=== PATIENT | female | born 1980 | race Caucasian/White ===

== ENCOUNTER 2020-04-09 15:51 | Outpatient (CLI) | payer OTHER, SELFPAY ==
--- NOTE | ~2020-04-09 | MM_ITS ---
EXAMINATION: MM scrn hodan implant BI w shreyas HISTORY: Screening mammogram TECHNIQUE: Craniocaudal and mediolateral oblique 3-D tomosynthesis images with implant displacement a nd synthetic 2-D images were generated. Craniocaudal and mediolateral oblique views of the breasts wi thout implant displacement were obtained using full field digital mammography. CAD analysis was submi tted and interpreted. COMPARISON: No prior mammogram is available for comparison at this institution. BREAST PARENCHYMAL COMPOSITION: The breasts are heterogeneously dense, which may obscure small masses . FINDINGS: The right breast implant appears collapsed. There is focal asymmetry inferiorly in the righ t breast adjacent to the implant on the MLO view. No mammographic evidence for malignancy in the left breast. IMPRESSION: 1. Focal right breast asymmetry lower aspect of the right breast on MLO view. 2. Additional mammographic views and possible breast ultrasound are recommended. BI-RADS Category 0: Incomplete: Needs additional imaging evaluation. Reviewed, dictated and finalized at location A. HER OF THE DEAF IMPRESSION: 1. Focal right breast asymmetry lower aspect of the right breast on MLO view. 2. Additional mammographic views and possible breast ultrasound are recommended . BI-RADS Category 0: Incomplete: Needs additional imaging evaluation.
== END 2020-04-09 15:52 | disposition home or self-care (01) ==
LOC: ANHIMG 15:56
PROVIDERS: PCP Surgery Plastic and Reconstructive Surgery; Visit Provider Surgery Plastic and Reconstructive Surgery
DX: Z12.31 Encounter for screening mammogram for malignant neoplasm of breast (principal); R92.8 Other abnormal and inconclusive findings on diagnostic imaging of breast
CPT/HCPCS: 77063; 77067

== ENCOUNTER 2020-05-12 13:48 | Outpatient (CLI) | payer OTHER, SELFPAY ==
--- NOTE | ~2020-05-12 | MMUS_ITS ---
EXAMINATION: MM diagnostic mammo unilat RT, US breast RT complete HISTORY: Follow-up right breast asymmetry. TECHNIQUE: Additional 3-D tomosynthesis images of the right breast were performed and synthetic 2-D i mages were generated. CAD analysis was submitted and interpreted. High resolution right breast ultras ound was performed. COMPARISON: 04/09/2020 BREAST PARENCHYMAL COMPOSITION: Breast composed of scattered areas of fibroglandular density. FINDINGS: MAMMOGRAPHIC FINDINGS: Focal asymmetry inferiorly medially in the right breast is less dense with spot compression views, mo st likely sternalis muscle. There is a ruptured breast implant which is collapsed. There are no suspi cious masses, calcifications or architectural distortion to suggest malignancy. ULTRASOUND: Complete right breast ultrasound: Normal heterogeneous echotexture without focal solid or cystic mass . IMPRESSION: 1. No evidence for malignancy in the right breast. 2. Routine yearly screening mammogram and regular clinical breast examination are recommended. BI-RADS Category 2: Benign finding(s). Reviewed, dictated and finalized at location A. OR SUPPORT ENGINEER IMPRESSION: 1. No evidence for malignancy in the right breast. 2. Routine yearly screening mammogram and regular clinical breast examination a re recommended. BI-RADS Category 2: Benign finding(s).
== END 2020-05-12 13:49 | disposition home or self-care (01) ==
PROVIDERS: PCP Surgery Plastic and Reconstructive Surgery; Visit Provider Surgery Plastic and Reconstructive Surgery
DX: R92.8 Other abnormal and inconclusive findings on diagnostic imaging of breast (principal)
CPT/HCPCS: 76641; 77065

== ENCOUNTER → 2020-05-31 01:17 | Outpatient (CLI) | payer OTHER, SELFPAY ==
[2020-05-31 19:12] LABS: SARS-CoV-2 RNA PCR Negative
== END ==
PROVIDERS: Visit Provider Surgery Plastic and Reconstructive Surgery
DX: Z01.812 Encounter for preprocedural laboratory examination (principal); Z20.822 Contact with and (suspected) exposure to COVID-19
CPT/HCPCS: C9803; U0003; U0005

== ENCOUNTER 2020-06-03 00:04 | Day surgery (SDC) | payer OTHER, SELFPAY ==
[2020-05-23 12:36] VITALS: BMI 34.5
[2020-06-03] VITALS (9 sets, daily range): BP systolic 118–187; BP diastolic 75–119; PULSE 97–118; RESP 14–18; TEMP 30.7–36.3; O2SAT 94–99
[2020-06-03] MEDS: LACTATED RINGERS 1,000 ML 30 ML IV CONT (11:45)
--- NOTE | 2020-06-03 13:12 | WPDHPUPDATE1 ---
History and Physical Update Update Date/Time: 06/03/20 13:12 History and Physical has been reviewed, including an updated exam of the patient. There are NO changes in the patient's condition. Risks, benefits, and alternatives have been discussed and questions answered. Patient agrees to proceed with procedure.
--- NOTE | 2020-06-03 13:26 | WPDANESEPPF ---
Anes - Initial Pre Proc Eval Procedure: Operation Date: 06/03/20 13:30 Proposed Procedures p Bilateral Breast Implant Exchange With Capsulectomy - Juni Blackmon MD Date/Time: 06/03/20 13:26 Surgeon: Juni Blackmon MD Pre Op Diagnosis: breast implant rupture Patient Data Age: 39 Gender: F Height: 5 ft 3 in Weight: 87.2 kg Last Vital Signs Temp 30.7 C L 06/03/20 11:27 Pulse 97 06/03/20 11:27 Resp 18 06/03/20 11:27 BP 154/112 H 06/03/20 12:09 Pulse Ox 98 06/03/20 11:27 Allergies Allergy/AdvReac Type Severity Reaction Status Date / Time No Known Allergies Allergy Verified 06/03/20 11:56 Home Medications Medication Instructions Recorded Confirmed Type quetiapine 100 mg tablet 100 mg PO HS tablet 02/20/20 06/03/20 History sertraline 100 mg tablet 200 mg PO DAILY tablet 02/20/20 06/03/20 History docusate sodium 100 mg capsule 100 mg PO DAILY #14 cap 05/19/20 06/03/20 Rx hydrocodone 5 mg-acetaminophen 325 1 tablet PO Q6H PRN #15 tablet 05/19/20 06/03/20 Rx mg tablet multivitamin 2 tablet PO DAILY 05/23/20 06/03/20 History Patient hx anesthesia problems: none Family hx anesthesia problems: none PMFSH Past Medical History Medical History (Updated 06/03/20 @ 13:27 by Gagandeep Woods MD) Anxiety Depression Surgical History Surgical History (Updated 06/03/20 @ 13:27 by Gagandeep Woods MD) History of appendectomy History of breast augmentation Family History Family History Mother Family history of diabetes mellitus in first degree relative Depression Bipolar disorder Anxiety Grandparent Diabetes mellitus Social History Social History Smoking status: Never smoker Alcohol intake: current Drinks per week: 2 Substance use: never Substance use type: does not use Living arrangements: with family Spiritual care concerns: No Anes - Eval Final PreProcedure Day of Procedure 06/03/20 13:26 Patient weight: obese Heart: regular rate and rhythm Lungs: clear to auscultation Airway: Mallampati scale class II Neurological: alert and oriented Last oral intake: >/= 8 hours ASA classification: II Emergent: no Anesthetic plan: proceed Anesthesia type and monitoring: general LMA and standard monitoring Informed Consent: The patient's anesthetic plan and its attendant risks and benefits were discussed with the patient/family/POA. Questions were solicited and answers provided to the satisfaction of the patient/family/POA.
--- NOTE | 2020-06-03 13:37 | P.OP_ITS ---
Procedure Note - Detailed Date of procedure: 06/03/20 Pre-op diagnosis: breast implant rupture Post-op diagnosis: same Procedure performed: Bilateral breast implant exchange Description of procedure: Preoperatively the risks, benefits, alternatives were discussed in extensive detail. Want her to be very realistic risks involved as well as expectations. We discussed her textured implants. She would like to send the capsule. She understands given nature of her ear capsules I may not be able to send the entire capsule or removed the entire capsule. She would like to send the capsule. She understands there will be additional charge to her directly for this above and beyond the hernández she has paid. This was an open- ended conversation making sure answered all of her questions to her satisfaction today. She would like proceed as above. Consent obtained. She was taken to the operating room placed supine on the operating room table. Anesthesia was provided by anesthesiology prepped and draped in a standard sterile fashion. Surgical time-out was taken. 1% lidocaine and 0.25% Marcaine with epinephrine was used anesthetize as a field block. Fifteen blade was used to excise previous scar. Dissection was continued down to the capsule was identified. Elevated above the capsule removing as much as I was able to safely. I then removed the implants. On the right implant there was approximatly 30-40cc of intracapsular yellow/green fluid that was sent to pathology. The capsules were also sent to pathology. I irrigated with 3 L of saline on TUR tubing. Verified strict hemostasis. I then irrigated with triple antibiotic Betadine containing solution. Throughout the entire procedure she did have Tegaderm nipple Ngo in place. I washed my glove. On the back table a removed all the air from the implant. Introduced into the pocket. Using a fill kit filled the implant appropriate volumes as described below. This was closed using 2-0 Vicryl followed by 3-0 Monocryl in a running subcuticular 4-0 Monocryl. Finally tissue glue. Surgical bra placed. [place], taken to the PACU without difficulty. All instrument sponge counts were correct at the end of the case. Anesthesia: GLMA Surgeon: Juni Blackmon MD Estimated blood loss (mL): 10 Drains: No Packing: No Pathology: yes (Bilateral breast implant capsules) Complications: No immediate complications Condition: stable Disposition: PACU Findings: Right breast had yellow / green fluid intracapsular sent to pathology Previous implants were textured subglandular as suspected. New implants: Bilateral Natrelle Saline Breast Implants 700cc filled to 740cc. Right: REF [id number] SN [id number] Left: REF [id number] SN [id number]
[2020-06-03] MEDS: ceFAZolin 2 GM/D5W 50 ML 2 GM/50 ML BAG IVPB (13:51)
[2020-06-03] MEDS: LIDO 1%/EPINEPHRINE 1:100,000 50 ML VIAL 40 ML INFILTRATE (14:18)
[2020-06-03] MEDS: fentaNYL CITRATE INJ (*CRX) 100 MCG/2 ML VIAL 25 MCG IV PUSH ×5 (15:46→16:11)
[2020-06-03] MEDS: oxyCODONE HCL (*CRX) 5 MG TAB IR PO (16:57)
== END 2020-06-03 17:22 | disposition home or self-care (01) ==
PROVIDERS: Visit Provider Surgery Plastic and Reconstructive Surgery
PROC: (CPT 19342; principal; 2020-06-03 13:30)
DX: T85.41XA Breakdown (mechanical) of breast prosthesis and implant, initial encounter (principal); Y83.8 Other surgical procedures as the cause of abnormal reaction of the patient, or of later complication, without mention of misadventure at the time of the procedure; F41.8 Other specified anxiety disorders; Z79.899 Other long term (current) drug therapy; E66.9 Obesity, unspecified; Z68.34 Body mass index [BMI] 34.0-34.9, adult
CPT/HCPCS: 19370; 19325; 88104; 88108; 88304; 88305; A9270; J0131; J0690; J1100; J1580; J2250; J2405; J2704; J3010; J7030; J7120

== ENCOUNTER 2022-02-21 10:02 | Observation (INO) | payer OTHER, SELFPAY ==
[2022-02-21] VITALS (7 sets, daily range): BP systolic 146–172; BP diastolic 93–120; PULSE 78–88; RESP 16–20; TEMP 36.4–36.6; O2SAT 97–100; BMI 34.7
--- NOTE | ~2022-02-21 | CT_ITS ---
EXAMINATION: CT brain wo con DATE: 02/21/2022 13:24 INDICATION: Right-sided tingling and paresthesias. Neck pain. TECHNIQUE: Computed tomography (CT) of the head was performed without intravenous contrast. The mA wa s adjusted according to patient size. Iterative reconstruction technique was employed. The dose-lengt h product was 529.67 mGy-cm. COMPARISON: None FINDINGS: There is no intracranial hemorrhage, acute infarction, or abnormal intracranial mass lesion . There is an old infarct in left superior cerebellum. The ventricles are normal in size. The orbits are normal. The paranasal sinuses are clear. The mastoid air cells are normal. There is cerumen in le ft external auditory canal. IMPRESSION: 1. 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 Reviewed, dictated and finalized at location A. IST WATER PURIFICATION
--- NOTE | ~2022-02-21 | CT_ITS ---
EXAMINATION: CT cervical spine wo con DATE: 02/21/2022 13:24 INDICATION: Neck pain. Right-sided paresthesias. TECHNIQUE: Computed tomography (CT) of the cervical spine was performed without intravenous contrast. Automated exposure control and iterative reconstruction technique were employed. The dose-length pro duct was 387.32 mGy-cm. COMPARISON: Cervical spine radiographs 11/04/2007 FINDINGS: There is 4 degrees levocurvature of cervical spine. There is kyphosis of cervical spine. Ve rtebral body heights and intervertebral disc heights are normal. The following disc levels are specif ically discussed: C2-C3: There is no uncovertebral joint osteoarthritis. There is mild right facet joint osteoarthritis . There is no neural foraminal stenosis. There is no central canal stenosis. C3-C4: There is no uncovertebral joint osteoarthritis. There is mild right and moderate left facet violet int osteoarthritis. There is no neural foraminal stenosis. There is no central canal stenosis. C4-C5: There is no uncovertebral joint osteoarthritis. There is mild bilateral facet joint osteoarthr itis. There is no neural foraminal stenosis. There is mild central canal stenosis. C5-C6: There is no uncovertebral joint osteoarthritis. There is mild bilateral facet joint osteoarthr itis. There is no neural foraminal stenosis. There is no central canal stenosis. C6-C7: There is no uncovertebral joint osteoarthritis. There is no facet joint osteoarthritis. There is no neural foraminal stenosis. There is no central canal stenosis. C7-T1: There is no uncovertebral joint osteoarthritis. There is moderate bilateral facet joint osteoa rthritis. There is no neural foraminal stenosis. There is no central canal stenosis. IMPRESSION: 1. Mild cervical spondylosis. Reviewed, dictated and finalized at location A. FIXER
--- NOTE | ~2022-02-21 | CT_ITS ---
EXAMINATION: CTA brain carotid DATE: 02/21/2022 14:30 INDICATION: right sided numbness TECHNIQUE: Computed tomographic angiography (CTA) of the head was performed without and with 100 mL O mnipaque-350 intravenous contrast. CTA of the neck was performed with intravenous contrast. Automated exposure control and iterative reconstruction technique were employed. The dose-length product was 1 035.64 mGy-cm. Maximum intensity projection and volume rendered 3D-reconstructions were created by mary howard technologist on a separate workstation. COMPARISON: CT brain 02/11/2022. FINDINGS: CTA HEAD: No large vessel occlusion, aneurysm, high flow vascular malformation, nidus or extravasation. Communi cating arteries are patent. CTA NECK: Aortic arch and proximal great vessels: Normal arch. Right common carotid, carotid bifurcation, and internal carotid artery: No plaque.There is 0% stenosi s of the proximal right internal carotid artery relative to normal distal artery lumen diameter (NASC ET criteria). Left common carotid, carotid bifurcation, and internal carotid artery: No plaque.There is 0% stenosis of the proximal left internal carotid artery relative to normal distal artery lumen diameter (NASCET criteria). Vertebral arteries: No significant plaque or stenosis. Left vertebral artery is dominant. Other findings: Enhancing midline nasopharyngeal mass between the longus colli muscles with internal gas collection. Upper anterior cervical chain lymphadenopathy IMPRESSION: 1. No large vessel occlusion. No significant stenosis in the carotid or vertebral arteries. 2. 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 Correlate clinically, and consider ENT referral. 3. Anterior cervical lymphadenopathy. Reviewed, dictated and finalized at location K. NE LATHE OPERATOR IMPRESSION: 1. No large vessel occlusion. No significant stenosis in the carotid or vertebr al arteries. 2. 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 Correlate cli nically, and consider ENT referral. 3. Anterior cervical lymphadenopathy.
--- NOTE | ~2022-02-21 | MR_ITS ---
EXAMINATION: MR cervical spine wo con DATE: 02/22/2022 10:11 INDICATION: Right neck and shoulder pain and paresthesias. TECHNIQUE: Magnetic resonance imaging (MRI) of the cervical spine was performed without intravenous c ontrast. COMPARISON: CT cervical spine 02/21/2022 FINDINGS: There is hypolordosis of cervical spine. Vertebral body heights and intervertebral disc hei ghts are normal. The spinal cord signal intensity is normal. The following disc levels are specifical ly discussed: C2-C3: The disc does not extend beyond the endplate margin. There is no uncovertebral joint osteoarth ritis. There is mild right facet joint osteoarthritis. There is no neural foraminal stenosis. There i s no central canal stenosis. C3-C4: There is a central protrusion. There is no uncovertebral joint osteoarthritis. There is mild r ight and moderate left facet joint osteoarthritis. There is no neural foraminal stenosis. There is mi ld central canal stenosis. C4-C5: The disc is bulging. There is no uncovertebral joint osteoarthritis. There is mild bilateral f acet joint osteoarthritis. There is no neural foraminal stenosis. There is mild central canal stenosi s. C5-C6: The disc does not extend beyond the endplate margin. There is no uncovertebral joint osteoarth ritis. There is mild bilateral facet joint osteoarthritis. There is no neural foraminal stenosis. The re is no central canal stenosis. C6-C7: The disc does not extend beyond the endplate margin. There is no uncovertebral joint osteoarth ritis. There is mild left facet joint osteoarthritis. There is no neural foraminal stenosis. There is no central canal stenosis. C7-T1: The disc does not extend beyond the endplate margin. There is no uncovertebral joint osteoarth ritis. There is moderate bilateral facet joint osteoarthritis. There is no neural foraminal stenosis. There is no central canal stenosis. IMPRESSION: 1. Mild cervical spondylosis. Reviewed, dictated and finalized at location A. D WELFARE ASSISTANT
--- NOTE | ~2022-02-21 | MR_ITS ---
EXAMINATION: MR thoracic spine wo con DATE: 02/23/2022 12:20 INDICATION: Right-sided numbness and tingling. TECHNIQUE: Magnetic resonance imaging (MRI) of the thoracic spine was performed without intravenous c ontrast. Sagittal localizer T1-weighted FSE of the cervical spine was obtained. Thoracic spine sequen vinay included sagittal T2-weighted FSE, sagittal T1-weighted FSE, sagittal T2-weighted FS FSE, and axi al T2-weighted FSE. COMPARISON: None FINDINGS: There is 7 degrees dextrocurvature of thoracic spine. Vertebral body heights are normal. In tervertebral disc heights are normal. There is multilevel facet joint osteoarthritis, severe on the r ight at T3-T4 and on the left at T2-T3 and T3-T4. On the right, there is mild neural foraminal stenos is at T3-T4, T4-T5, and T5-T6. On the left, there is mild neural foraminal stenosis at T2-T3, T3-T4, and T6-T7. The discs do not extend beyond the endplate margins. No central canal stenosis. The spinal cord signal intensity is normal. The conus medullaris is at L1-L2. IMPRESSION: 1. Mild thoracic spondylosis. Reviewed, dictated and finalized at location A. E OR SHRED ROLL OPERATOR
--- NOTE | ~2022-02-21 | MR_ITS ---
EXAMINATION: MR brain/brain stem wo/w con DATE: 02/22/2022 10:11 INDICATION: Right-sided numbness. TECHNIQUE: Magnetic resonance imaging (MRI) of the brain and brainstem was performed without and with 18 mL MultiHance intravenous contrast. COMPARISON: Head CT 02/21/2022 FINDINGS: There is no intracranial hemorrhage, acute infarction, or abnormal intracranial mass lesion . There is an old infarct in superior left cerebellum. There are scattered areas of nonspecific incre ased T2-weighted signal intensity in the cerebral white matter, which is within normal limits for the patient's age. The ventricles are normal in size. The orbits are normal. The paranasal sinuses are clear. The mastoid air cells are normal. IMPRESSION: 1. 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 Reviewed, dictated and finalized at location A. CREW FOREMAN
--- NOTE | 2022-02-21 12:31 | ED.EXTPRO ---
HPI - Extremity Problem General Chief complaint: Extremity Problem,Nontraumatic Stated complaint: TINGLING TO R SIDE FOR 2 DAYS Time Seen by Provider: 02/21/22 11:59 History of Present Illness HPI Narrative: Patient is a 41-year-old female with a history of depression presenting with intermittent tingling. Patient states that for the last 2 days she has had intermittent tingling on the right side of her body. States it involves her arm and leg but not her face. No speech changes or focal weakness. States that it feels strange to walk when it happens because her leg feels tingly. States the episodes last for about a minute. Also complaining of right-sided neck pain that radiates into her shoulder. No fevers or chills, chest pain, shortness of breath, cough, abdominal pain, nausea or vomiting, diarrhea, dysuria, leg swelling. Denies recent trauma. Related Data Home Medications Medication Instructions Recorded Confirmed sertraline 100 mg tablet 200 mg PO DAILY 02/20/20 02/21/22 norgestimate 0.25 mg-ethinyl 1 tablet PO QPM 02/21/22 02/21/22 estradiol 35 mcg tablet (Sprintec (28)) Allergies Allergy/AdvReac Type Severity Reaction Status Date / Time No Known Allergies Allergy Verified 07/23/20 15:19 Review of Systems Review of Systems: All systems reviewed & are unremarkable except as noted in HPI and below PMFSH Past Medical History Medical History (Updated 02/21/22 @ 16:47 by Isabella Lewis PA-C) Anxiety Bipolar disorder Depression Surgical History Surgical History History of appendectomy History of breast augmentation Family History Family History Mother Family history of diabetes mellitus in first degree relative Depression Bipolar disorder Anxiety Grandparent Diabetes mellitus Social History Social History (Updated 02/21/22 @ 16:42 by Isabella Lewis PA-C) Social History: Surrogate medical decision maker: Bárbara ( mother) or Paige ( sibling) Alberto. Code status: Full code. Smoking status: Never smoker Alcohol intake: former Drinks per week: 2 Substance use: never Substance use type: does not use Lack of Transportation: No Lack of Food: Never True Current Housing: I Have Housing Concerned About Future Housing: No Difficulty Paying Gas/Electric Bills: No Difficulty Paying for Meds: No Currently Unemployed: YES Education: High School Diploma/GED Difficulty w/ Childcare or Family Care: No Additional occupation/education comments: Lives with mother in [place]. Additional gender identity comments: Not currently employed. Spiritual care concerns: No Exam Narrative: GENERAL: Well-appearing, well-nourished, and in no acute distress. HEAD: Normocephalic, atraumatic. EYES: PERRLA and EOMI. ENT: Nares clear, no rhinorrhea or epistaxis. Mucous membranes moist. NECK: Supple. CHEST: Clear to auscultation. No respiratory distress. HEART: Regular rate and rhythm. No murmur heard. Normal peripheral pulses. ABDOMEN: Soft, nontender, nondistended, normal active bowel sounds. EXTREMITIES: Normal range of motion. No edema. SKIN: Warm, dry, no rash. NEURO: No focal deficits. Alert and oriented x3. PSYCH: Normal mood and affect. Course Vital Signs Vital signs: Vital Signs Temperature 97.8 F 02/21/22 10:20 Pulse Rate 88 02/21/22 10:20 Respiratory Rate 16 02/21/22 10:20 Blood Pressure 172/120 H 02/21/22 10:20 Pulse Oximetry 99 02/21/22 10:20 Temperature 97.8 F 02/21/22 16:40 Pulse Rate 87 02/21/22 16:40 Respiratory Rate 18 02/21/22 16:40 Blood Pressure 146/93 H 02/21/22 16:40 Pulse Oximetry 97 02/21/22 16:40 Oxygen Delivery Room Air 02/21/22 16:16 MDM - Extremity (Nontraumatic) MDM Narrative Medical decision making narrative: Patient is a 41-year-old female presenting with i
[2022-02-21 13:08] LABS: Basophils Absolute Auto 0.1 K/mm3 (0.0-0.1); Basophils Percent Auto 0.6 % (0.2-1.2); Eosinophils Absolute Auto 0.3 K/mm3 (0-0.3); Eosinophils Percent Auto 2.5 % (0-4.4); Hematocrit 42.5 % (37.0-47.0); Hemoglobin 14.4 g/dL (12.0-15.0); Immature Granulocyte Absolute 0.08 K/mm3 (0.00-0.031); Immature Granulocyte Percent A 0.7 % (0-0.5); Lymphocytes Absolute Auto 3.89 K/mm3 (0.9-3.2); Mean Corpuscular HGB Conc 33.9 g/dl (32-36); Mean Corpuscular Hemoglobin 30.2 pg (26-34); Mean Corpuscular Volume 89.1 fl (80-100); Mean Platelet Volume 9.1 fl (7.4-10.4); Monocytes Absolute Auto 0.6 K/mm3 (0.1-0.6); Monocytes Percent Auto 4.7 % (2.6-8.5); Neutrophils Absolute Auto 6.9 K/mm3 (1.3-6.7); Neutrophils Percent Auto 58.5 % (45.5-73.1); Platelet Count Result 225 k/mm3 (150-375); Red Blood Count 4.77 M/mm3 (4.2-5.4); Red Cell Distribution Width 14.4 % (11.5-14.5); White Blood Count 11.8 K/mm3 (4.5-10.0)
[2022-02-21 13:29] LABS: Alanine Aminotransferase 35 U/L (6-35); Albumin Level 4.8 g/dL (3.5-5.1); Alkaline Phosphatase 109 U/L (38-126); Anion Gap 12 mmol/L (8-16); Aspartate Amino Transferase 34 U/L (14-36); Bilirubin,Total 0.7 mg/dL (0.2-1.3); Blood Urea Nitrogen 13 mg/dL (7-17); Calcium 9.4 mg/dL (8.4-10.2); Carbon Dioxide 26 mmol/L (22-30); Chloride 101 mmol/L (98-107); Estimated CRCL calculation 96 ml/min; Estimated Glomerular Filt Rate > 60; Glucose 96 mg/dL (65-110); Potassium 3.9 mmol/L (3.4-5.0); Sodium 139 mmol/L (137-145)
[2022-02-21 13:47] LABS: Appearance Urine Clear (Clear); Bilirubin Urine Negative (Negative); Blood Urine Trace-intact (Negative); Color Urine Yellow (Yellow); Glucose Urine UA Negative (Negative); Ketones Urine Negative (Negative); Leukocyte Esterase Ur 1+ LEU/UL (Negative); Nitrate Urine Negative (Negative); Pregnancy On Board Control Positive; Protein Urine Negative (Negative); Urine Pregnancy Test Negative; Urobilinogen Urine 0.2 mg/dL (<2.0)
[2022-02-21 13:55] LABS: Bacteria Urine 4+ /hpf; Mucus Urine Rare /lpf; Squamous Epithelial Cell Urine Few /hpf (Few); Transitional Epi Cells Urine Rare /hpf (None Seen); WBC Urine 21-30 /hpf
[2022-02-21 13:59] LABS: Add Urine Microscopic? YES
[2022-02-21 14:45] LABS: Influenza A QL RT-PCR Negative (Negative); Influenza B QL RT-PCR Negative (Negative); SARS-CoV-2 RNA PCR Negative
[2022-02-21] MEDS: CEPHALEXIN 500 MG CAPSULE PO ×2 (14:50→20:46)
--- NOTE | 2022-02-21 16:00 | PM.IMHP ---
H&P: HPI History of Present Illness Date/Time: 02/21/22 16:00 Chief Complaint: Right arm and leg tingling. Narrative: This is a pleasant 41-year-old female with bipolar disorder who presented to the emergency department for evaluation of right arm and leg tingling. The last 2 days she has had intermittent and self-limiting episodes of right arm and leg numbness/tingling associated with a tight muscle like pain in the right posterior shoulder. She sees no pattern as to when this occurs and she has not noticed any aggravating or alleviating factors. The symptoms last less than a minute before resolving but they have occurred more frequently today and thus she came in for evaluation. She feels a bit weak on that side as well but only with the numbness/tingling. Her face, head, and neck are unaffected. Prior to the last 2 days she has never had similar symptoms. She denies vertigo, visual disturbances, facial droop, difficulty swallowing and speaking, gait disturbances, and troubles with coordination. On arrival to the ED, her blood pressure was 172/120 and it has been consistently elevated (blood pressures have been in the 170s to 190s at her psychiatrist's office over the years though she has never been started on antihypertensives). Workup was significant for an abnormal urinalysis of which she is not symptomatic. WBC was 11.8 and the rest of her labs were unremarkable. 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 Cervical spine CT showed mild cervical spondylosis. 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 With further questioning she endorses a sore throat for several days with tenderness along the jaw and down the sides of her neck. It is not unusual for her to have foul smelling tonsilliths/drainage. She denies fever, chills, sweats, sinus congestion, and cough. Review of Systems Review of Systems: Twelve systems were reviewed and are negative except for as per HPI. [facility] Past Medical History Medical History (Updated 02/21/22 @ 16:47 by Isabella Lewis PA-C) Anxiety Bipolar disorder Depression Surgical History Surgical History History of appendectomy History of breast augmentation Family History Family History Mother Family history of diabetes mellitus in first degree relative Depression Bipolar disorder Anxiety Grandparent Diabetes mellitus Social History Social History (Updated 02/21/22 @ 16:42 by Isabella Lewis PA-C) Social History: Surrogate medical decision maker: Bárbara ( mother) or Paige ( sibling) Alberto. Code status: Full code. Smoking status: Never smoker Alcohol intake: current Drinks per week: 2 Substance use: never Substance use type: does not use Additional occupation/education comments: Lives with mother in [place]. Additional gender identity comments: Not currently employed. Spiritual care concerns: No Meds Home Medications and Allergies Home Medications Medication Instructions Recorded Confirmed Type quetiapine 100 mg tablet 100 mg PO HS 02/20/20 06/03/20 History sertraline 100 mg tablet 200 mg PO DAILY 02/20/20 06/03/20 History multivitamin 2 tablet PO DAILY 05/23/20 06/03/20 History Allergies Allergy/AdvReac Type Severity Reaction Status Date / Time No Known Allergies Allergy Verified 07/23/20 15:19 Vital Signs Vital Signs - 24 hr 02/21/22 10:20 02/21/22 13:43 Temperature 97.8 F Pulse Rate 88 78 Respiratory Rate 16 18 Blood Pressure 172/120 H 153/97 H Pulse Oximetry 99 100 Exam Narrative: General: Well-developed, nontoxic-appearing female sitting up in bed. Weight: 89 kilograms. BMI: 34.8. HEENT: Normocephalic, atraumatic. PERR
--- NOTE | 2022-02-21 16:16 | ADMGEN ---
This patient, Raisa Dominguez, was admitted to [facility] Surg Room 324-01. Patient/family oriented to hospital policies and general routines including ID bracelet, bed and alarms, visiting hours, pain management, procedures, bathroom and other care routines, personal items, smoking policy, room service/diet, and visiting hours. Information on how to activate the Rapid Response Team has been discussed. Patient/Family are encouraged to report perceived risks to care and to ask questions if they do not understand what they are told or what they should do.
--- NOTE | 2022-02-21 17:20 | PC.NURSE ---
Spoke with Dr. 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 Dr. Solitario stated it's probably not infected but if it is I would recommend antibiotics and a follow-up outpatient . Dr. Solitario also stated he would review the scan but since the patient was not symptomatic he did not feel it necessary to see patient while in patient unless she becomes symptomatic or other issues arise. No new orders received at this time.
[2022-02-21] MEDS: ASPIRIN 81 MG CHEWABLE TABLET 324 MG PO (18:28)
[2022-02-22] VITALS (9 sets, daily range): BP systolic 140–164; BP diastolic 92–101; PULSE 78–92; RESP 16–20; TEMP 36.1–36.4; O2SAT 96–99
[2022-02-22 07:19] LABS: Magnesium 2.2 mg/dL (1.6-2.3)
[2022-02-22 07:23] LABS: HDL Direct 69 mg/dL; Triglycerides 456 mg/dL (<150)
[2022-02-22 07:25] LABS: LDL Cholesterol Direct 194 mg/dL
[2022-02-22 07:26] LABS: Cholesterol 362 mg/dL (0-200)
--- NOTE | 2022-02-22 08:22 | PM.IMPN ---
Progress Note: A&P Assessment and Plan (1) Right sided numbness: Code(s): R20.0 - Anesthesia of skin Status: Acute Assessment and Plan: CT head: chronic cerebellar infarct MRI brain: Old infarct in superior left cerebellum MRI cervical spine: Mild cervical spondylosis Echo: No valvular dysfunction, normal left and right ventricular size and systolic function, grade 1 diastolic noncompliance, no intracardiac shunting telemetry TSH within normal limits neuro checks q4 Neuro consulted b12, magnesium and lipid panel ordered b12 was 247. Cyanocobalamin injection given and then pt should continue PO 1000mcg daily. (2) Old cerebellar infarct without late effect: Code(s): Z86.73 - Personal history of transient ischemic attack (TIA), and cerebral infarction without residual deficits Status: Acute Assessment and Plan: CT head: chronic cerebellar infarct MRI brain: Old infarct in superior left cerebellum MRI cervical spine: Mild cervical spondylosis Patient has elevated triglycerides at 456 and cholesterol at 362. Starting atorvastatin 40 mg dq (3) Elevated blood pressure reading: Code(s): R03.0 - Elevated blood-pressure reading, without diagnosis of hypertension Status: Acute Assessment and Plan: Monitor Possibly start on antihypertensives. (4) Abnormal urinalysis: Code(s): R82.90 - Unspecified abnormal findings in urine Status: Acute Assessment and Plan: abnormal urine: Leukocyte +1, urine RBC 6-10, urine white blood cell 20 1-30 Not having uti symptoms hx of frequent uti's cephalexin started Urine culture pending (5) Nasopharyngeal mass: Code(s): J39.2 - Other diseases of pharynx Status: Acute Assessment and Plan: CT of head and neck: 1. No large vessel occlusion. No significant stenosis in the carotid or vertebral arteries 2. 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 Correlate clinically, and consider ENT referral. 3. Anterior cervical lymphadenopathy. ENT consulted ? (6) Bipolar disorder: Code(s): F31.9 - Bipolar disorder, unspecified Status: Acute Assessment and Plan: continue home medications Time Spent With Patient Time with patient: Greater than 35 minutes Subjective Date/time seen: 02/22/22 08:22 Interval history: 47-year-old female with a history of CVA, bipolar disorder and hypertension. Patient presented to the ER on 02/21/2022 due to right-sided weakness. Patient found to have old CVA on CT and MRI. Patient did have decreased B12. 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 Patient states that she is having a lot of anxiety about CT and MRI results. Patient states that the numbness and tingling are on the right side of her body in her arms and legs. The numbness and tingling waxes and wanes. No complaints on the left side of the body. No loss of consciousness, difficulty speaking, facial droop or visual changes. Patient denies chest pain, nausea, vomiting, diarrhea and fever. She does have some was shortness of breath associated with numbness and tingling. Review of Systems Review of Systems: All systems reviewed & are unremarkable except as noted in HPI and below Exam Narrative: GENERAL: Comfortable, appears anxious HENMT: moist mucous membranes EYES: EOM intact b/l NECK: no lymphadenopathy RESPIRATORY: clear to auscultation CARDIO: RRR GI: soft, nontender, bowel sounds present SKIN: no rashes EXTREMITIES: no edema, redness or tenderness MSK: 5/5 strength bilaterally upper and lower extremities. NEURO: Equal sensation to light and deep touch on right and left-sided body. No facial droop. Objective Data Vital Signs Vital Signs: Vital Signs - 24 hr 02/21/22 10:20 02/21/22 13:43 02/21/22 16:40 Temperature 97.8 F 97.8 F Pulse Rate 88 78 87 Respiratory Rate 16 18 18 Blood Pressure 172
[2022-02-22 08:37] LABS: Folic Acid > 20.0 ng/mL (2.76->20)
[2022-02-22 09:24] LABS: Hematocrit 42.4 % (37.0-47.0); Hemoglobin 13.9 g/dL (12.0-15.0); Mean Corpuscular HGB Conc 32.8 g/dl (32-36); Mean Corpuscular Hemoglobin 29.6 pg (26-34); Mean Corpuscular Volume 90.2 fl (80-100); Mean Platelet Volume 9.5 fl (7.4-10.4); Platelet Count Result 229 k/mm3 (150-375); Red Cell Distribution Width 14.6 % (11.5-14.5); White Blood Count 11.4 K/mm3 (4.5-10.0)
[2022-02-22 09:31] LABS: Anion Gap 12 mmol/L (8-16); Blood Urea Nitrogen 13 mg/dL (7-17); Calcium 9.6 mg/dL (8.4-10.2); Carbon Dioxide 23 mmol/L (22-30); Chloride 102 mmol/L (98-107); Estimated CRCL calculation 97 ml/min; Estimated Glomerular Filt Rate > 60; Glucose 113 mg/dL (65-110); Potassium 3.9 mmol/L (3.4-5.0); Sodium 137 mmol/L (137-145)
[2022-02-22] MEDS: ASPIRIN 81 MG ENTERIC TABLET PO (10:58)
[2022-02-22] MEDS: CEPHALEXIN 500 MG CAPSULE PO ×2 (10:58→20:43)
[2022-02-22] MEDS: SERTRALINE HCL 50 MG TABLET 200 MG PO (10:59)
[2022-02-22] MEDS: CYANOCOBALAMIN INJ 1,000 MCG/ML VIAL 1000 MCG IM (10:59)
--- NOTE | 2022-02-22 12:26 | PHAR ---
The patient's home med of Norgestimate-Ethinyl Estradiol [Sprintec (28)] 0.25-35 mg-mcg tablet has been verified.
--- NOTE | 2022-02-22 17:05 | ECHO_ITS ---
Patient Info Name: Raisa Dominguez Age: 41 years : 1980 Gender: Female Ht: 63 in Wt: 196 lbs BSA: 2.03 m2 HR: 81 bpm BP: 164 / 97 mmHg Heart Rhythm: Sinus Rhythm Technical Quality: Fair Exam Date: 02/22/2022 11:16 AM Exam Location: [facility] Card Pulmonary Patient Status: Inpatient Admit Date: 02/21/2022 Staff Ordering Physician: Isabella Lewis PA-C Electrical Tryout Person: Mary Beebe RDCS Attending Provider: Sarah Ayers MD Referring Physician: Debbie RAHMAN; Exam Type: CA echo doppler w bubble study Study Info Indications I10 - Essential (primary) hypertension - NEURO SYMPTOMS Complete two-dimensional, color flow and Doppler transthoracic echocardiogram is performed with agitated saline. Contrast/Agitated Saline Contrast/Ag. Saline: Agitated Saline Amount: 20.00 ml Administered By: Hannah Shearer Existing IV Access: Yes IV Access Condition: patent with no signs of infiltration Summary 1. Normal left and right ventricular size and systolic function. 2. Grade 1 diastolic noncompliance. 3. No valvular dysfunction. 4. Agitated saline contrast shows no evidence of intracardiac shunting. Left Ventricle Left ventricular chamber dimension is normal. Left ventricular systolic function is normal, estimated at 60-65%. The left ventricular diastolic function is grade I diastolic dysfunction. Right Ventricle Right ventricular chamber dimension is normal. Left Atria Left atrial chamber dimension is normal. Right Atria Right atrial chamber dimension is normal. Atrial Septum Intact interatrial septum visualized by agitated saline imaging. Aortic Valve The aortic valve is normal. Pulmonic Valve The pulmonic valve is not well visualized. Mitral Valve The mitral valve has normal leaflets. Tricuspid Valve The tricuspid valve leaflets are normal. Pericardium/Pleural The pericardium appears normal. Aorta The aortic root size at the sinus of Valsalva is normal. Left Ventricular Outflow Tract Name Value Normal LVOT 2D LVOT Diameter 2.0 cm LVOT Doppler LVOT Peak Gradient 5 mmHg LVOT Mean Gradient 3 mmHg LVOT VTI 21 cm LVOT VTI/AV VTI Ratio 1.0 LVOT Stroke Volume 65 ml Pulmonic Valve Name Value Normal RVOT Doppler RVOT Peak Gradient 2 mmHg PV Doppler PV Peak Gradient 5 mmHg Mitral Valve Name Value Normal MV Doppler -
[2022-02-23] VITALS (7 sets, daily range): BP systolic 142–200; BP diastolic 91–130; PULSE 78–98; RESP 16–20; TEMP 36–36.7; O2SAT 98–100
[2022-02-23] MEDS: hydrALAZINE HCL 20 MG/ML VIAL 10 MG IV PUSH ×2 (06:20→08:22)
[2022-02-23 06:40] LABS: Hematocrit 46.3 % (37.0-47.0); Hemoglobin 15.1 g/dL (12.0-15.0); Mean Corpuscular HGB Conc 32.6 g/dl (32-36); Mean Corpuscular Hemoglobin 30.2 pg (26-34); Mean Corpuscular Volume 92.6 fl (80-100); Mean Platelet Volume 9.1 fl (7.4-10.4); Platelet Count Result 244 k/mm3 (150-375); Red Cell Distribution Width 14.5 % (11.5-14.5); White Blood Count 15.1 K/mm3 (4.5-10.0)
[2022-02-23 06:53] LABS: Alanine Aminotransferase 39 U/L (6-35); Albumin Level 4.8 g/dL (3.5-5.1); Alkaline Phosphatase 103 U/L (38-126); Anion Gap 12 mmol/L (8-16); Aspartate Amino Transferase 43 U/L (14-36); Bilirubin,Total 0.7 mg/dL (0.2-1.3); Blood Urea Nitrogen 11 mg/dL (7-17); Calcium 9.4 mg/dL (8.4-10.2); Carbon Dioxide 23 mmol/L (22-30); Chloride 99 mmol/L (98-107); Estimated CRCL calculation 97 ml/min; Estimated Glomerular Filt Rate > 60; Glucose 101 mg/dL (65-110); Magnesium 2.3 mg/dL (1.6-2.3); Potassium 3.9 mmol/L (3.4-5.0); Sodium 134 mmol/L (137-145)
--- NOTE | 2022-02-23 08:10 | PM.IMPN ---
Progress Note: A&P Assessment and Plan (1) Right sided numbness: Code(s): R20.0 - Anesthesia of skin Status: Acute Assessment and Plan: CT head: chronic cerebellar infarct MRI brain: Old infarct in superior left cerebellum MRI cervical spine: Mild cervical spondylosis Echo: No valvular dysfunction, normal left and right ventricular size and systolic function, grade 1 diastolic noncompliance, no intracardiac shunting telemetry TSH within normal limits neuro checks q4 Neuro consulted b12, magnesium and lipid panel ordered b12 was 247. Cyanocobalamin injection given and then pt should continue PO 1000mcg daily. (2) Old cerebellar infarct without late effect: Code(s): Z86.73 - Personal history of transient ischemic attack (TIA), and cerebral infarction without residual deficits Status: Acute Assessment and Plan: CT head: chronic cerebellar infarct MRI brain: Old infarct in superior left cerebellum MRI cervical spine: Mild cervical spondylosis Patient has elevated triglycerides at 456 and cholesterol at 362. Starting atorvastatin 40 mg dq (3) Elevated blood pressure reading: Code(s): R03.0 - Elevated blood-pressure reading, without diagnosis of hypertension Status: Acute Assessment and Plan: Blood pressure this morning 200/130.. 10 mg IV hydralazine given Norvasc 5 mg q.d. Continue to monitor (4) Abnormal urinalysis: Code(s): R82.90 - Unspecified abnormal findings in urine Status: Acute Assessment and Plan: abnormal urine: Leukocyte +1, urine RBC 6-10, urine white blood cell 20 1-30 Not having uti symptoms hx of frequent uti's cephalexin started Urine culture pending (5) Nasopharyngeal mass: Code(s): J39.2 - Other diseases of pharynx Status: Acute Assessment and Plan: CT of head and neck: 1. No large vessel occlusion. No significant stenosis in the carotid or vertebral arteries 2. 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 Correlate clinically, and consider ENT referral. 3. Anterior cervical lymphadenopathy. ENT consulted ? (6) Bipolar disorder: Code(s): F31.9 - Bipolar disorder, unspecified Status: Acute Assessment and Plan: continue home medications Subjective Date/time seen: 02/23/22 08:10 Interval history: 47-year-old female with a history of CVA, bipolar disorder and hypertension. Patient presented to the ER on 02/21/2022 due to right-sided weakness. Patient found to have old CVA on CT and MRI. Patient did have decreased B12. 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 Patient states that she is having a lot of anxiety about CT and MRI results. Patient states that the numbness and tingling are on the right side of her body in her arms and legs. The numbness and tingling waxes and wanes. No complaints on the left side of the body. No loss of consciousness, difficulty speaking, facial droop or visual changes. Patient denies chest pain, nausea, vomiting, diarrhea and fever. She does have some was shortness of breath associated with numbness and tingling. Exam Narrative: GENERAL: Comfortable, appears anxious HENMT: moist mucous membranes EYES: EOM intact b/l NECK: no lymphadenopathy RESPIRATORY: clear to auscultation CARDIO: RRR GI: soft, nontender, bowel sounds present SKIN: no rashes EXTREMITIES: no edema, redness or tenderness MSK: 5/5 strength bilaterally upper and lower extremities. NEURO: Equal sensation to light and deep touch on right and left-sided body. No facial droop. Objective Data Vital Signs Vital Signs: Vital Signs - 24 hr 02/22/22 12:00 02/22/22 16:00 02/22/22 14:00 Temperature 97.0 F L Pulse Rate 82 92 92 Respiratory Rate 16 Blood Pressure 154/101 H Pulse Oximetry 96 Oxygen Delivery 02/22/22 21:52 02/22/22 20:00 02/23/22 00:00 Temperature 97.6 F Pulse R
--- NOTE | 2022-02-23 08:15 | PC.NURSE ---
Judy Martinez CORRECTIONAL PROBATION OFFICER notified of BP 200/130, new orders received.
[2022-02-23] MEDS: ASPIRIN 81 MG ENTERIC TABLET PO (08:22)
[2022-02-23] MEDS: CEPHALEXIN 500 MG CAPSULE PO (08:22)
[2022-02-23] MEDS: ATORVASTATIN 40 MG TABLET PO (08:22)
[2022-02-23] MEDS: CYANOCOBALAMIN 1,000 MCG TABLET 1000 MCG PO (08:23)
[2022-02-23] MEDS: SERTRALINE HCL 50 MG TABLET 200 MG PO (08:23)
[2022-02-23] MEDS: ENOXAPARIN 40 MG/0.4 ML SYRINGE SUB-Q (08:23)
[2022-02-23] MEDS: amLODIPine BESYLATE 5 MG TABLET PO (10:13)
--- NOTE | 2022-02-23 11:16 | WPDNEURCNPN ---
Assessment and Plan Assessment and plan (1) Nasopharyngeal mass: Code(s): J39.2 - Other diseases of pharynx Status: Acute (2) Right sided numbness: Code(s): R20.0 - Anesthesia of skin Status: Acute (3) Old cerebellar infarct without late effect: Code(s): Z86.73 - Personal history of transient ischemic attack (TIA), and cerebral infarction without residual deficits Status: Acute (4) Demyelinating disease: Code(s): G37.9 - Demyelinating disease of central nervous system, unspecified Status: Acute Plan young lady with history of numbness of the right side, old infarct in the superior left cerebellum, and incidental finding of nasopharyngeal mass possible infected cyst. Need to rule out the possibility of demyelinating disease with MRI of the cervical and thoracic spine in addition to the echocardiogram with bubble study to rule out the possibility of embolic phenomena. Consult date: 02/23/22 Time Seen: 10:45 Reason for consult: Numbness of the right side HPI: Raisa Dominguez is a 41 year old female admitted to the hospital through the emergency room for the complaints of intermittent numbness of the right side of 48 hours duration involving the right upper and right lower extremity without any associated focal weakness but complains of is strange sensation on walk episodes are coming and going lasting for a short duration in addition to the complaint of pain in her neck radiating to the right shoulder. Patient has been receiving sertraline 200 mg daily. She is not allergic to any medication. She does carry the diagnosis of bipolar disorder with anxiety and depression. She has no history of smoking she drinks only 2 drinks per week. On initial evaluation in the emergency room her blood pressure was 172/120 which further came down to 146/93 otherwise vital signs were stable, CBC was abnormal, so as the BMP, UA was with 21 to 30 WBCs, and influenza a and B and starts COVID testing was negative, head and neck CTA documented no circulatory involvement though midline nasopharyngeal mass and anterior cervical lymphadenopathy , brain MRI documented old infarct in the superior left cerebellum and cervical MRI documented mild cervical spondylosis Review of Systems Review of Systems: All systems reviewed & are unremarkable except as noted in HPI and below PMFSH Past Medical History Medical History (Updated 02/23/22 @ 11:32 by Terrell Marcos MD) Anxiety Bipolar disorder Depression Surgical History Surgical History History of appendectomy History of breast augmentation Family History Family History Mother Family history of diabetes mellitus in first degree relative Depression Bipolar disorder Anxiety Grandparent Diabetes mellitus Social History Social History (Updated 02/21/22 @ 16:42 by Isabella Lewis PA-C) Social History: Surrogate medical decision maker: Bárbara ( mother) or Paige ( sibling) Alberto. Code status: Full code. Smoking status: Never smoker Alcohol intake: former Drinks per week: 2 Substance use: never Substance use type: does not use Lack of Transportation: No Lack of Food: Never True Current Housing: I Have Housing Concerned About Future Housing: No Difficulty Paying Gas/Electric Bills: No Difficulty Paying for Meds: No Currently Unemployed: YES Education: High School Diploma/GED Difficulty w/ Childcare or Family Care: No Additional occupation/education comments: Lives with mother in [place]. Additional gender identity comments: Not currently employed. Spiritual care concerns: No Meds Home Medications and Allergies Home Medications Medication Instructions Recorded Confirmed Type sertraline 100 mg tablet 200 mg PO DAILY 02/20/20 02/21/22 History norgestimate 0.25 mg-ethinyl 1 table
--- NOTE | 2022-02-23 14:18 | PC.NURSE ---
Judy Martinez DESK MANAGER notified of bp 142/113.
--- NOTE | 2022-02-23 15:03 | PM.DS ---
DS: Admitting Diagnosis Discharge Date 02/23/2022 Admitting Diagnosis Right-sided Numbness and tingling DS: Summary Hospital Course Reason for hospitalization: Right-sided numbness and tingling. Hospital Course: 41-year-old patient with a history of depression presented to the ER on 02/21/2022 with intermittent numbness and tingling on the right side of her body for 2 days. Patient had a white blood cell count of 11.8 and an abnormal UA. Patient started on Keflex. Keflex discontinue when urine culture revealed no growth. CT brain revealed old infarct in the left superior cerebellum. Patient was not aware of previous CVA. Neurology consulted. CT cervical spine revealed mild cervical spondylosis. 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 ENT consulted. MRI of cervical spine revealed previous cerebellar infarct but no acute intracranial findings. Echocardiogram within normal limits. Patient was found to have hypertension during her hospital stay as well low B12. Patient was given B12 injection and put on daily B12 supplements. Patient's blood pressure controlled with hydralazine and amiodarone. Patient was started on Lipitor 40 mg q.d. Patient cleared by Neurology for discharge. Patient stable on discharge advised continuing B12, amiodarone and Lipitor as an outpatient. Time Spent with Patient Time attestation: Total time spent providing and/or coordinating discharge services: Exam Narrative: GENERAL: Comfortable, no acute distress HENMT: moist mucous membranes EYES: EOM intact b/l NECK: no lymphadenopathy RESPIRATORY: clear to auscultation CARDIO: RRR GI: soft, nontender, bowel sounds present SKIN: no rashes EXTREMITIES: no edema, redness or tenderness DS: Data Data Completed and Pending Labs on day of discharge: Labs from last 24 hours 02/23/22 02/23/22 06:23 06:23 WBC 15.1 H RBC 5.00 Hgb 15.1 H Hct 46.3 MCV 92.6 MCH 30.2 MCHC 32.6 RDW 14.5 Plt Count 244 MPV 9.1 Sodium 134 L Potassium 3.9 Chloride 99 Carbon Dioxide 23 Anion Gap 12 BUN 11 Creatinine 0.70 Estim Creat Clear Calc 97 Estimated GFR > 60 Glucose 101 Calcium 9.4 Magnesium 2.3 Total Bilirubin 0.7 AST 43 H ALT 39 H Alkaline Phosphatase 103 Total Protein 9.0 H Albumin 4.8 Discharge Plan Discharge Attending physician on discharge: Anson Louis Consulting providers: Melinda Reynoso ; Juni Solitario Discharging Clinician: Judy Martinez Patient Disposition: Home, Self-Care Activity: as tolerated Diet: as tolerated Discharge Instructions: Continue taking blood pressure medication (amlodipine) and cholesterol medication (atorvastatin) daily. Take all medications as prescribed even if feeling better Eat well balanced meals and stay hydrated Follow-up with neurology in 6-8 weeks Change positions slowly taking a break in between each position change If you should experience any chest pain, shortness of breath, temps >100.4 or any other worrisome symptoms please follow up with your PCP come back to the hospital Follow up with your primary in 1 weeks Follow-up with ENT regarding Tornwaldt cyst. It has been a pleasure taking care of you thank you for using our services Patient Instructions: Antibiotic Form Stand Alone Forms: General Discharge Information Follow-up/Referrals: Juni Solitario MD [Physician] - Melinda Reynoso MD [Physician] - Discharge Medications: New atorvastatin 40 mg Tablet 40 mg PO DAILY Qty: 30 0RF cyanocobalamin (vitamin B-12) [Vitamin B-12] 1,000 mcg Tablet 1,000 mcg PO QAM Qty: 30 0RF amlodipine [Norvasc] 5 mg Tablet 5 mg PO QAM Qty: 30 0RF Continued sertraline 100 mg tablet 200 mg PO DAILY norgestimate-ethinyl estradiol [Sprintec (28)] 0.25-35 mg-mcg tablet 1 tablet PO QPM Date of admission
== END 2022-02-23 16:30 | disposition home or self-care (01) ==
LOC: ANHED 14:35 → ANH3MEDSUR 02-22 04:05
PROVIDERS: Internal Medicine Critical Care Medicine; Physician Assistant; Admitting Provider Family Medicine; Emergency Provider Emergency Medicine; Visit Provider Internal Medicine
DX: R20.2 Paresthesia of skin (principal); J39.2 Other diseases of pharynx; Z86.73 Personal history of transient ischemic attack (TIA), and cerebral infarction without residual deficits; R03.0 Elevated blood-pressure reading, without diagnosis of hypertension; G37.9 Demyelinating disease of central nervous system, unspecified; M54.2 Cervicalgia; F41.9 Anxiety disorder, unspecified; F31.9 Bipolar disorder, unspecified; E53.8 Deficiency of other specified B group vitamins; R59.1 Generalized enlarged lymph nodes; I51.89 Other ill-defined heart diseases; R82.90 Unspecified abnormal findings in urine; M47.812 Spondylosis without myelopathy or radiculopathy, cervical region; Z20.822 Contact with and (suspected) exposure to COVID-19; Z79.3 Long term (current) use of hormonal contraceptives; Z79.899 Other long term (current) drug therapy; Z84.89 Family history of other specified conditions; Z81.8 Family history of other mental and behavioral disorders
CPT/HCPCS: 36415; 70450; 70496; 70498; 70553; 72125; 72141; 72146; 80048; 80053; 80061; 81001; 81025; 82607; 82746; 83735; 84443; 85025; 85027; 87086; 87088; 87636; 93306; 96372; 96374; 96375; 96376; 99285; A9270; A9577; G0378; G0379; J0360; J1650; J3420; Q9967

== ENCOUNTER 2024-11-06 13:57 | Emergency (ER) | payer OTHER, SELFPAY ==
--- NOTE | ~2024-11-06 | XR_ITS ---
XR ankle RT min 3V 11/06/2024 14:21 INDICATION: Right ankle pain PROCEDURE: 4 views right ankle COMPARISON: 01/31/2017 FINDINGS: Fracture, dislocation or subluxation is not identified. The soft tissues appear within normal limits. No foreign bodies are identified. IMPRESSION: 1: NO ACUTE BONE OR JOINT ABNORMALITY IDENTIFIED. Reviewed, dictated and finalized at location O.
[2024-11-06 14:04] VITALS: BP 153/97; PULSE 81; RESP 16; TEMP 36.9; O2SAT 98
--- NOTE | 2024-11-06 14:21 | ED_ITS ---
HPI - Extremity Injury (Lower) General Chief Complaint: Extremity Injury, Lower Stated Complaint: Right Ankle Pain Time Seen by Provider: 11/06/24 14:25 Source: patient, RN notes reviewed and old records reviewed Mode of arrival: ambulatory Limitations: no limitations History of Present Illness HPI Narrative: 44-year-old female presents to the [facility] with right lateral ankle pain and swelling. States that she rolled her ankle in for sleep. Pain with walking. Denies hitting head. No loss of consciousness. No foot pain, no knee pain. Decreased range of motion of the ankle secondary to pain and swelling Related Data Home Medications ?Medication ?Instructions ?Recorded ?Confirmed ?Last Taken ?Type sertraline 100 mg tablet 200 mg PO DAILY 02/20/2002/02 1 Day Ago History ~02/20/22 norgestimate 0.25 mg-ethinyl 1 tablet PO QPM 02/21/22 02/21/22 1 Day Ago History estradiol 0.035 mg tablet ~02/20/22 (Sprintec (28)) dextroamphetamine-amphetamine ER PO 11/06/24 Unknown History 30 mg 24hr capsule,extend release Allergies Allergy/AdvReac Type Severity Reaction Status Date / Time No Known Allergies Allergy Verified 11/06/24 14:14 Review of Systems Review of Systems: All systems reviewed & are unremarkable except as noted in HPI and below Constitutional: Constitutional: Reports no additional constitutional complaints Musculoskeletal: Musculoskeletal: Reports as per HPI, Reports arthralgias and Reports joint swelling Integumentary/Breasts: Skin/Breast: Reports system reviewed and no additional complaints, except as docu PMFSH Past Medical History Medical History (Updated 11/06/24 @ 19:29 by Shanti Sanchez APRN) Bipolar disorder Depression Anxiety Surgical History Surgical History History of appendectomy History of breast augmentation Family History Family History Mother Family history of diabetes mellitus in first degree relative Depression Bipolar disorder Anxiety Grandparent Diabetes mellitus Social History Social History (Updated 02/21/22 @ 16:42 by Isabella Lewis PA-C) Social History: Surrogate medical decision maker: Bárbara ( mother) or Paige ( sibling) Alberto. Code status: Full code. Smoking status: Never smoker Alcohol intake: former Drinks per week: 2 Substance use: never Substance use type: does not use Lack of Transportation: No Lack of Food: Never True Current Housing: I Have Housing Concerned About Future Housing: No Difficulty Paying Gas/Electric Bills: No Difficulty Paying for Meds: No Currently Unemployed: YES Education: High School Diploma/GED Difficulty w/ Childcare or Family Care: No Living arrangements: with family Additional occupation/education comments: Lives with mother in [place]. Additional gender identity comments: Not currently employed. Spiritual care concerns: No Comments At the time of my signature, I reviewed and agree with the nursing past medical, surgical, social, and family history. There is no relevant family history pertinent to the patient complaint. Exam Const: General: cooperative, healthy appearing, comfortable, no acute distress, well developed, alert and well nourished Nutritional Appearance: well nourished Orientation/consciousness: patient oriented x3 Limitations: no limitations HENMT: Head: normal to inspection Eyes: General: appearance normal, both eyes and all related structures Alignment and Position: alignment normal Neck: Neck: normal visual inspection, full ROM, no lymphadenopathy and no meningeal signs Chest: Chest palpation & inspection: normal inspection of the chest Resp: Effort & Inspection: normal respiratory effort and able to speak in complete sentences Cardio: Rate: regular rate Skin: General skin exam: normal color and no rashes or lesions noted Neuro: General: patient oriented x3, gait normal, moves all extremities and no meningeal signs Cognition (Neuro): normal cognition Speech: normal speech Gait exam (Neuro): Normal gait present Extrem: General: normal to inspection, full ROM, capillary refill normal and normal gait Right lower extremity: ankle Details: tenderness, swelling and abnormal ROM Details: pain with active ROM and pain with passive ROM; no abrasions, no lacerations and no ecchymosis Psych: Appearance: grossly normal and well kempt Mental Status: mental status grossly normal Speech and movement: Normal speech and movement present and Clear speech present Affect: normal affect Attitude: cooperative Course Course Level of Care: Express Care Visit Vital Signs Vital signs: Vital Signs Temperature 98.5 F 11/06/24 14:04 Pulse Rate 81 11/06/24 14:04 Respiratory Rate 16 11/06/24 14:04 Blood Pressure 153/97 H 11/06/24 14:04 Pulse Oximetry 98 11/06/24 14:04 Oxygen Delivery Room Air 11/06/24 14:04 Temperature 98.5 F 11/06/24 14:04 Pulse Rate 81 11/06/24 14:04 Respiratory Rate 16 11/06/24 14:04 Blood Pressure 153/97 H 11/06/24 14:04 Pulse Oximetry 98 11/06/24 14:04 Oxygen Delivery Room Air 11/06/24 14:04 Reviewed MDM - Extremity Injury (Lower) MDM Narrative Medical decision making narrative: Patient sitting comfortably in exam room. Patient is nontoxic, vitals stable. Patient presents with right lateral ankle pain and swelling after rolling it. X-ray negative. Corey wrap applied Pain patient appropriate for outpatient treatment with close follow-up Discharge instructions reviewed with patient, as well as provided in writing per nursing staff. The instructions also include specific and strict return/GO TO THE ER as well as f/u information. All questions have been answered, and the patient deny any further questions with discharge and discharge plan. Some parts of this dictation were generated by voice recognition software and may contain typographical and/or grammatical inaccuracies. Differential Diagnosis Differential diagnosis: Likely ankle sprain and strain and ankle fracture Imaging Data Radiologist's impression: XR ankle RT min 3V 11/06/2024 14:21 INDICATION: Right ankle pain PROCEDURE: 4 views right ankle COMPARISON: 01/31/2017 FINDINGS: Fracture, dislocation or subluxation is not identified. The soft tissues appear within normal limits. No foreign bodies are identified. IMPRESSION: 1: NO ACUTE BONE OR JOINT ABNORMALITY IDENTIFIED. Critical Care Time Critical Care Time Critical Care Time: No Discharge Plan Discharge Clinical Impression: Right ankle sprain Qualifiers: Encounter type: initial encounter Involved ligament of ankle: unspecified ligament Qualified Code(s): S93.401A - Sprain of unspecified ligament of right ankle, initial encounter Patient Disposition: Home Condition: Stable Instructions: Ankle Sprain (ED) Additional Instructions: Today your blood pressure was 153/97. Is recommended that you follow-up with your primary care provider within 2 weeks to have this rechecked. Your Xray did not show a fracture. Wear good supportive shoes at all times. Ice should be applied to help reduce swelling. It can be used for 20 to 30 minutes, every 2-3 hours while awake. Do not apply ice directly to your skin. ankle braces or corey-wraps will help support your injured ankle. You can alternate ibuprofen 600mg and Tylenol 650mg every 4 hours as needed for pain Please schedule a follow-up visit with your personal physician for further evaluation and treatment within 2 weeks especially if symptoms persist. For new or worsening symptoms go directly to the emergency room Patient Language: Azeri Prescriptions: New ibuprofen 600 mg tablet 600 mg PO TID PRN (Reason: fever or pain) Qty: 30 0RF No Action dextroamphetamine-amphetamine 30 mg capsule,extended release 24hr PO sertraline 100 mg tablet 200 mg PO DAILY norgestimate-ethinyl estradiol [Sprintec (28)] 0.25-35 mg-mcg tablet 1 tablet PO QPM atorvastatin 40 mg Tablet 40 mg PO DAILY Qty: 30 0RF cyanocobalamin (vitamin B-12) [Vitamin B-12] 1,000 mcg Tablet 1,000 mcg PO QAM Qty: 30 0RF amlodipine [Norvasc] 5 mg Tablet 5 mg PO QAM Qty: 30 0RF Follow-up/Referrals: PHYSICIAN,SPECIAL EDUCATION PARAPROFESSIONAL [Primary Care Provider, Internal Medicine] Time of Disposition: 14:33
== END 2024-11-06 14:40 | disposition home or self-care (01) ==
PROVIDERS: Emergency Provider Nurse Practitioner
DX: S93.401A Sprain of unspecified ligament of right ankle, initial encounter (principal); T14.90XA Injury, unspecified, initial encounter; F31.9 Bipolar disorder, unspecified; F41.8 Other specified anxiety disorders
CPT/HCPCS: 73610; 99213; G0463